=== PATIENT | female | born 1950 | race Caucasian/White ===

== ENCOUNTER 2024-06-11 09:18 | Outpatient (AMB) | payer MEDICAID, SELFPAY ==
[2024-06-11 09:43] VITALS: BP 128/80; PULSE 76; RESP 18; TEMP 36.6; O2SAT 95; BMI 26.6
--- NOTE | 2024-06-11 09:43 | ORTHONT_ITS ---
Vital signs 06/11/24 09:43 Height 1.57 m Height Method Stated Weight 65.941 kg Weight Measurement Method Standing Scale BMI 26.6 BP 128/80 Blood Pressure Source Automatic Cuff Blood Pressure Location Right Upper Arm Position Sitting Respiration 18 Pulse 76 Pulse Source Monitor Temp 97.8 F Temp Source Temporal Artery Scan Pulse Oximetry (%) 95 Oxygen Delivery Method Room Air Med/Allergies Allergies & Medications Allergies codeine Adverse Reaction (Intermediate, Verified 06/11/24 09:44) HIVES Medication Reconciliation escitalopram oxalate 20 mg tablet (Lexapro) 20 mg PO QDAY 06/11/24 [History Confirmed 06/11/24] lisinopril 20 mg-hydrochlorothiazide 12.5 mg tablet 1 tab PO QDAY 06/11/24 [History Confirmed 06/11/24] sitagliptin phosphate 50 mg-metformin 1,000 mg tablet (Janumet) 1 tab PO BID 06/11/24 [History Confirmed 06/11/24] Exam Exam Patient is in no acute distress and is cooperative with the examination today. Breathing is nonlabored. In no respiratory distress. Bilateral extremities were evaluated and demonstrates sensation intact to light touch. Palpable pedal pulses are present. No significant edema is present. Bilateral hips were examined. The patient has no pain with log roll of the hips. Internal rotation to 30 degrees and external rotation to 30 degrees is painless. Negative FADIR. Left knee range of motion is 10 to 35 degrees. The knee is extremely stiff it is painful Assessment and Plan Problem List (1) Bilateral knee pain: Status: Acute Plan: Patient is a 73-year-old Female with a left total knee replacement 2 years ago complicated by stiffness. She never had a manipulation. She reports persistent stiffness since surgery. She is not a reliable historian. I would like to get new x-rays as well as her operative report. We discussed different treatment options today on what the x-rays show. (2) Stiffness of left knee: Status: Acute Advanced Care Planning Discussion Advance care planning discussed with:: patient Office Procedures GNS Level of Care Nursing/Assessment Patient Status: Initial/New Patient Nursing Assessment/Reassesment: Medication Reconciliation, Update PMH in EMR and Vital Signs Coordination of Care: Complex Care and Chronic Disease 1-5, Education Complex Pt/Fam, Consent,records obtained, informed consent, Results/Orders obtained and Staff clarify orders Special Needs: Language special needs New Patient Charge New Patient Point Assignment: 1094 New Patient Point Charge: CLEATER Level 3 (0920-4059) MA Intake Visit Data Collection New Patient or Established: New Patient (never been to [facility]) Reason for Visit:: LEFT KNEE PAIN Seen by Clinical Staff ONLY (RN/JOURDAN): No Verbal consent obtained for Telemed visit?: No 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 She is complaining of pain and stiffness. She also has had multiple falls. She uses a cane. She reports that she never got her motion back. She has no recent x-rays. Personal History Occupation: UNEMPLOYED Red flag PMH: BMI BMI Counceling provided: Yes Pain Pain level (0-10): 8 Pain duration: ALL DAY Pain location: inside (medial), outside (lateral), anterior and posterior Pain quality: sharp, dull and aching Pain timing: night and increases with activity Associated signs & symptoms: numbness and stiffness Ambulatory data Ambulatory device: cane Treatments Improvement with previous injections: No Improvement with PT: No Improvement with NSAIDS: no Review of Systems Review of Systems: All systems negative unless otherwise noted in HPI.
--- NOTE | 2024-06-11 09:53 | XR_ITS ---
Examination: Right knee 4 views TECHNIQUE: AP oblique lateral axial right knee 4 views Exam date and time: June 11, 2024 10:12 AM INDICATIONS: Knee surgery 2 years ago with persistent knee pain. FINDINGS: Moderate osteopenia Total right knee arthroplasty with satisfactory alignment No loosening of the prosthetic components No fracture No patellar dislocation IMPRESSION: Total right knee arthroplasty with satisfactory alignment
== END 2024-06-11 09:56 | disposition home or self-care (01) ==
LOC: HODSRG 09:18
PROVIDERS: Supervising Provider Orthopaedic Surgery Adult Reconstructive Orthopaedic Surgery; Visit Provider Orthopaedic Surgery Adult Reconstructive Orthopaedic Surgery
DX: M25.562 Pain in left knee (principal); M25.561 Pain in right knee; M25.662 Stiffness of left knee, not elsewhere classified; Z91.81 History of falling; Z96.651 Presence of right artificial knee joint
CPT/HCPCS: 73564; 99203; G0463

== ENCOUNTER 2024-06-30 11:17 | Outpatient (AMB) | payer MEDICAID, SELFPAY ==
--- NOTE | 2024-06-30 11:29 | PD.ORTHCLVIS ---
Vital signs 06/30/24 11:30 Height 1.57 m Height Method Stated Weight 65.941 kg Weight Measurement Method Standing Scale BMI 26.7 BP 122/79 Blood Pressure Source Automatic Cuff Blood Pressure Location Left Upper Arm Position Sitting Respiration 19 Pulse 84 Pulse Source Monitor Temp 97.0 F Temp Source Temporal Artery Scan Pulse Oximetry (%) 97 Oxygen Delivery Method Room Air Med/Allergies Allergies & Medications Allergies codeine Adverse Reaction (Intermediate, Verified 06/30/24 11:33) HIVES Medication Reconciliation escitalopram oxalate 20 mg tablet (Lexapro) 20 mg PO QDAY 06/11/24 [History Confirmed 06/30/24] lisinopril 20 mg-hydrochlorothiazide 12.5 mg tablet 1 tab PO QDAY 06/11/24 [History Confirmed 06/30/24] sitagliptin phosphate 50 mg-metformin 1,000 mg tablet (Janumet) 1 tab PO BID 06/11/24 [History Confirmed 06/30/24] Exam Exam Patient is in no acute distress and is cooperative with the examination today. Breathing is nonlabored. In no respiratory distress. Bilateral extremities were evaluated and demonstrates sensation intact to light touch. Palpable pedal pulses are present. No significant edema is present. Bilateral hips were examined. The patient has no pain with log roll of the hips. Internal rotation to 30 degrees and external rotation to 30 degrees is painless. Negative FADIR. Left knee range of motion is 10 to 35 degrees. The knee is extremely stiff it is painful X-rays demonstrate her total knee replacement in good position alignment. There is no evidence of loosening Assessment and Plan Problem List (1) Bilateral knee pain: Status: Acute Plan: Patient is a 73-year-old Female with a left total knee replacement 2 years ago complicated by stiffness. She never had a manipulation. She reports persistent stiffness since surgery. She is not a reliable historian. I would like to get new x-rays as well as her operative report. We discussed different treatment options. She unfortunately did not bring her Operative report today. I recommend that she see her original surgeon as she has stiffness. He actually recommended revision but she did not want surgery. I discussed with her that stiff this is a difficult problem and frequently required to the prescription. (2) Stiffness of left knee: Status: Acute Advanced Care Planning Discussion Advance care planning discussed with:: patient Office Procedures GNS Level of Care Nursing/Assessment Patient Status: Established Patient Nursing Assessment/Reassesment: Medication Reconciliation, Update PMH in EMR and Vital Signs Coordination of Care: Complex Care and Chronic Disease 1-5, Education Complex Pt/Fam, Consent,records obtained, informed consent, Results/Orders obtained and Staff clarify orders Special Needs: Language special needs Established Patient Charge Established Patient Point Assignment: 95 Established Patient Point Charge: EP Level 3 (80-115) MA Intake Visit Data Collection New Patient or Established: Established Patient (seen at [facility] within 3 years) Reason for Visit:: XRAY RESULTS Seen by Clinical Staff ONLY (RN/MA): No 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 PCP or OBGYN visit in last 3 months: Yes Hx Now: No Do You Feel Safe at Home: Yes Authorities Contacted: N/A Questionairres Past Medical History Past Medical History Have you ever been diagnosed with any of the following: Respiratory Problems Smoking: No Smoking Exposure: No Subjective Visit Visit for: follow up visit, knee and x-rays Immunization / Flu Flu Vaccine in the Last 12 Months: No Flu Vaccine Exclusion Criteria: No Exclusion Criteria History of Present Illness Chief complaint: LEFT KNEE PAIN Date of 1st surgery (if applicable): 2 YEARS AGO Pleasant 73 year female who has left knee surgery in [place] 2 years ago. She is complaining of pain and stiffness. She also has had multiple falls. She uses a cane. She reports that she never got her motion back. S Personal History Occupation: UNEMPLOYED Red flag PMH: BMI BMI Counceling provided: Yes Pain Pain level (0-10): 8 Pain duration: CONSTANT Pain location: inside (medial) and anterior Pain quality: sharp, dull and aching Pain timing: increases with activity and stairs Associated signs & symptoms: numbness and stiffness Ambulatory data Ambulatory device: cane Treatments Improvement with previous injections: No Improvement with PT: No Improvement with NSAIDS: no Review of Systems Review of Systems: All systems negative unless otherwise noted in HPI.
[2024-06-30 11:30] VITALS: BP 122/79; PULSE 84; RESP 19; TEMP 36.1; O2SAT 97; BMI 26.7
== END 2024-06-30 11:43 | disposition home or self-care (01) ==
LOC: HODSRG 11:17
PROVIDERS: Supervising Provider Orthopaedic Surgery Adult Reconstructive Orthopaedic Surgery; Visit Provider Orthopaedic Surgery Adult Reconstructive Orthopaedic Surgery
DX: M25.562 Pain in left knee (principal); M25.561 Pain in right knee; M25.662 Stiffness of left knee, not elsewhere classified
CPT/HCPCS: 99213; G0463